=== PATIENT | female | born 1945 | race Caucasian/White ===

== ENCOUNTER 2020-07-31 11:31 | Emergency (ER) | payer MEDICARE, BC ==
[~2020-07-31] VITALS: Ht 160 cm; Wt 62.1 kg
[2020-07-31] MEDS ORDERED: AMOX-430 PO (11:47)
--- NOTE | 2020-07-31 11:48 | NUR ---
PT WAS EVALUATED BY DR LOWRY. PT WAS D/C'd TO HOME. D/C INSTRUCTIONS GIVEN TO THE PT BY DR LOWRY.
[2020-07-31] MEDS ORDERED: TDAP DIPH,PERTUSS,TET VAC/PF 0.5 ML DISP.SYRIN IM ONE ×2 (11:59→12:00)
[2020-07-31 12:04] VITALS: BP 139/78
== END 2020-07-31 12:04 | disposition home or self-care (01) ==
LOC: ER 11:31
DX: S41.152A Open bite of left upper arm, initial encounter (principal); W54.0XXA Bitten by dog, initial encounter; Y92.89 Other specified places as the place of occurrence of the external cause; R03.0 Elevated blood-pressure reading, without diagnosis of hypertension
CPT/HCPCS: 90715; A4663